=== PATIENT | male | born 1965 | race Caucasian/White ===

== ENCOUNTER 2016-09-11 07:45 | Day surgery (SDC) | payer BC ==
[2016-09-11] MEDS ORDERED: Lactated Ringers 1,000 ML IV SCH (08:00)
[2016-09-11] MEDS ORDERED: Midazolam 1 MG/ML 2 ML SDV ONE (09:08)
[2016-09-11] MEDS ORDERED: fentaNYL 100 MCG/2 ML SDV ONE (09:08)
[2016-09-11] MEDS ORDERED: Propofol 200 MG/20 ML SDV ONE (09:08)
[2016-09-11 10:16] VITALS: BP 132/85
--- NOTE | 2016-09-11 13:49 | OR ---
DATE OF PROCEDURE: 09/11/2016 PREOPERATIVE DIAGNOSIS: Colon cancer screening. POSTOPERATIVE DIAGNOSIS: Unremarkable colonoscopy. PROCEDURE: Colonoscopy to the cecum. ANESTHESIA: IV anesthesia with monitored anesthesia care. INDICATION: This 50-year-old white male is referred for a colonoscopy for colon cancer screening. He has never had a colonoscopic exam. I counseled him for the procedure including risks and alternatives, and he gave his informed consent to proceed. DESCRIPTION OF PROCEDURE: The patient was placed in the left lateral decubitus position. IV anesthesia was administered by the Anesthesia Service. Time-out was held. A rectal exam was performed, which was unremarkable. The flexible video Olympus colonoscope was introduced through his anus, up his rectum, and out his colon all way to the cecum. Once the cecum was reached, the scope was slowly withdrawn examining the mucosa throughout. No mucosal abnormalities were noted. The scope was retroflexed in the rectum with the distal rectum appearing unremarkable. The scope was straightened and removed. He tolerated the procedure well. Jigar Newell MD /[id number] JOHN PAUL
== END 2016-09-11 10:50 | disposition home or self-care (01) ==
LOC: JP.SDS 07:45
PROVIDERS: ATTEND Surgery
DX: Z12.11 Encounter for screening for malignant neoplasm of colon (principal); E78.5 Hyperlipidemia, unspecified
CPT/HCPCS: 45378; J2250; J2704; J3010; J7120

== ENCOUNTER 2020-11-21 05:50 | Day surgery (SDC) | payer BC ==
[~2020-11-21 05:50] MED LIST: Acetaminophen 500 MG Tab PO ONE
[2020-11-21] MEDS ORDERED: Bupivacaine 0.5% 50 ML MDV ONE (06:40)
[2020-11-21] MEDS ORDERED: Lidocaine 1% with EPINEPHrine 1:100,000 50 ML MDV ONE (06:40)
[2020-11-21] MEDS ORDERED: Propofol 200 MG/20 ML SDV ONE ×2 (06:58→07:24)
[2020-11-21] MEDS ORDERED: fentaNYL 100 MCG/2 ML SDV ONE ×2 (06:58→07:31)
[2020-11-21] MEDS ORDERED: Midazolam 1 MG/ML 2 ML SDV ONE (06:58)
[2020-11-21] MEDS ORDERED: Dextrose 5%-Lactated Ringers 1,000 ML IV SCH (07:00)
[2020-11-21] MEDS ORDERED: ceFAZolin 2 GM in Premix Bag 1 BAG IV ONE (07:15)
[2020-11-21] MEDS ORDERED: Ketorolac 60 MG/2 ML SDV ONE (07:44)
[2020-11-21] MEDS ORDERED: Acetaminophen/HYDROcodone 325-5 MG Tab PO PRN (08:34)
[2020-11-21 09:26] VITALS: BP 129/83; PULSE 84
--- NOTE | 2020-12-06 15:40 | OR ---
DATE OF PROCEDURE: 11/21/2020 SURGEON: Ralph Tobin MD PREOPERATIVE DIAGNOSIS: Right inguinal hernia. POSTOPERATIVE DIAGNOSES: 1. Direct right inguinal hernia. 2. Right ilioinguinal nerve at risk for scar entrapment. OPERATIVE PROCEDURES: Right inguinal exploration with: 1. Repair of right inguinal hernia with mesh plug technique (74426). 2. Excision of portion of right ilioinguinal nerve (25925). ANESTHESIA: Local plus IV sedation. DRAPERY EXAMINER: Isatu Gallo PA-C. INDICATIONS FOR PROCEDURE: This is a 55-year-old male presenting with increasingly symptomatic right inguinal hernia. Plan is to proceed with a right inguinal hernia repair with mesh plug technique. Potential risks of the procedure including bleeding, infection, injury to underlying viscera, possible recurrence of the hernia or mesh becoming infected, problems with chronic pain following the procedure were gone over. It will often divide either the ilioinguinal nerve and/or the iliohypogastric nerve on the operative side, which may result in some area of cutaneous anesthesia was gone over as well and the patient wishes to proceed. DETAILS OF PROCEDURE: The patient was taken to the operating room, placed in a supine position. After IV sedation was administered, the abdomen and groin areas were prepped and draped. The right inguinal area was then anesthetized with 1% lidocaine mixed with Marcaine and a standard right inguinal incision was made and carried down through the skin and subcutaneous tissue and through the external oblique aponeurosis. Subaponeurotic flaps were then raised superiorly and inferiorly and the ilioinguinal nerve was noted to be placed across the area of the inguinal floor and it was felt to be at risk for scar entrapment with subsequent mesh repair being undertaken. The nerve was then divided and excised out to the far lateral aspect of the incision. Cord structures were then mobilized upward. The patient was noted to not have any indirect component of the hernia. The patient had a quite large direct component. This was dissected free from the cord structures and the transversalis fascia overlying this incised. An extra-large mesh plug was then selected and positioned into the area of the inguinal floor. This was stapled to the Regulo's ligament with titanium tacking screws and then to the underside of the conjoined tendon medially, superiorly, laterally, and inferiorly with horizontal mattress sutures of 0 Vicryl stitch. Following this, the conjoined tendon was sutured down to the inguinal ligament out to the level of the internal ring. Over this floor, then the flat portion of the mesh plug system was cut to appropriate size, sutured lateral to the cord structures with a 3-0 Vicryl stitch and then tacked to the pubic tubercle with tacking screw as well. Over this, the cord structures were placed. The external oblique aponeurosis was then approximated with a 3-0 Vicryl stitch as was the Meche's fascia and the skin closed with a 4-0 Vicryl subcuticular stitch. Dressing was applied. The patient was taken to the recovery room in satisfactory condition. Physician assistant county engineer, Isatu Gallo, played an essential role in assisting in this case, helping to position the patient, retracting structures as needed, as well as suturing and cutting sutures when indicated. Her presence improved patient safety and decreased the operative time. Ralph Tobin MD /[id number]
== END 2020-11-21 10:30 | disposition home or self-care (01) ==
LOC: JP.SDS 05:50
PROVIDERS: ATTEND Surgery
DX: K40.90 Unilateral inguinal hernia, without obstruction or gangrene, not specified as recurrent (principal)
CPT/HCPCS: 49505; 88302; A9270; C1713; C1781; J0690; J1885; J2250; J2704; J3010; J3490; J7121